=== PATIENT | female | born 1940 | race Two or more races ===

== ENCOUNTER 2023-09-16 19:11 | Inpatient (IN) | payer OTHER ==
[~2023-09-16] VITALS: Ht 147.3 cm; Wt 73.5 kg
[2023-09-16] MEDS ORDERED: COZAAR100 MG PO (20:13)
--- NOTE | 2023-09-16 20:13 | NUR ---
PACIENTE ALERTA Y ORIENTADA X3. PACIENTE REFIERE DOLOR EN LA PIERNA IZQUIERDA. SE OBSERVA PIERNA INFLAMADA, ROJIZA Y CALIENTE AL TACTO. SE ESTIMAN VITALES Y SE UBICA.
[2023-09-16] MEDS ORDERED: CEFTRIAXONE SODIUM 1,000 MG VIAL IV STA (22:00)
[2023-09-16] MEDS ORDERED: CEFTRIAXONE SODIUM 1,000 MG VIAL ONE (22:19)
--- NOTE | 2023-09-16 22:46 | NUR ---
PACIENTE ALERTA Y ORIENTADO X3. SE EDUCA SOBRE TX MEDICO, TRACI REFIERE ENTENDER. SE EXTRAEN MUESTRAS DE LABORATORIO Y SE ADMINISTRAN MEDICAMENTOS LEE ORDEN MEDICA. PENDIENTE CT.
[2023-09-16 23:16] LABS: HEMATOCRIT 36.6 % (36.0-45.00); HEMOGLOBIN 12.5 g/dL (12.0-15.00); MEAN CELL VOLUME 85.1 fL (80.00-100.00); MEAN CORPUSCULAR HGB CONC 34.1 g/dl (32.0-36.0); PLATELET COUNT 195 K/uL (150-450); RED CELL DISTRIBUTION WIDTH 13.8 % (11.5-14.5)
[2023-09-16 23:26] LABS: INR 1.14; PROTHROMBIN TIME 11.9 SECONDS (9.0-11.5)
[2023-09-16 23:39] LABS: ALBUMIN 3.3 gm/dL (3.4-5.0); BILIRUBIN TOTAL 1.19 mg/dL (0.3-1.2); CALCIUM 9.4 mg/dL (8.5-10.1); CREATININE SERUM 1.08 mg/dL (0.55-1.02); GFR 48.45; GLOBULINA 4.2 G/DL (2.4-3.5); POTASSIUM 3.95 mEq/L (3.5-5.1); TOTAL PROTEIN 7.5 gm/dL (6.4-8.2)
[2023-09-16 23:51] LABS: C-REACTIVE PROTEIN 22.8 MG/DL (0.00-0.29)
[2023-09-17] MEDS ORDERED: 0.9 % SODIUM CHLORIDE 1,000 ML IV ONE (03:45)
--- NOTE | 2023-09-17 07:17 | NUR ---
SE RECIBE PTE ALERTA Y ORIENTADA EN AWILDA BAJA CON BARANDAS ELEVADAS POR SEGURIDAD. SE OBSERVA PTE CON BUEN PATRON RESPIRATORIO. RECIBIENDO 0.9NSS 1000ML @ 100ML/HR. PEND CONS. DR JEN WILKINS
[2023-09-17] MEDS ORDERED: CEFTRIAXONE SODIUM 1,000 MG VIAL ONE (07:29)
[2023-09-17] MEDS ORDERED: CEFTRIAXONE SODIUM 1,000 MG in 0.9 % SODIUM CHLORIDE 100 ML IV SCH (09:00)
[2023-09-17] MEDS ORDERED: FAMOTIDINE/PF 20 MG in 0.9 % SODIUM CHLORIDE 100 ML IV SCH (12:43)
[2023-09-17] MEDS ORDERED: INSULIN LISPRO 1,000 UNIT/10 ML UNITS SUBCUTANEO PRN (12:45)
[2023-09-17] MEDS ORDERED: DEXTROSE 50 % IN WATER 0.5 G/ML DISP.SYRIN IV PRN (12:45)
[2023-09-17] MEDS ORDERED: 0.9 % SODIUM CHLORIDE 1,000 ML IV SCH (12:45)
[2023-09-17] MEDS ORDERED: ACETAMINOPHEN 325 MG TABLET PO PRN (12:45)
[2023-09-17] MEDS ORDERED: ONDANSETRON HCL 4 MG in 0.9 % SODIUM CHLORIDE 50 ML IV PRN (13:00)
[2023-09-17 16:45] LABS: PARTIAL THROMBOPLASTIN TIME 21.6 SECONDS (22.0-34.0); PROTHROMBIN TIME 10.5 SECONDS (9.0-11.5)
[2023-09-17 16:53] LABS: CREATININE SERUM 0.82 mg/dL (0.55-1.02)
[2023-09-17 17:00] LABS: C-REACTIVE PROTEIN 26.3 MG/DL (0.00-0.29)
[2023-09-17] MEDS ORDERED: VANCOMYCIN HCL 1,000 MG VIAL IV SCH (17:00)
[2023-09-17] MEDS ORDERED: levoFLOXacin IN DEXTROSE 5 % 150 ML IV SCH (17:00)
[2023-09-17] MEDS ORDERED: LOSARTAN POTASSIUM 100 MG TABLET PO SCH (17:00)
[2023-09-18] MEDS ORDERED: DEXTROSE 50 % IN WATER 0.5 G/ML VIAL IV PRN (07:30)
[2023-09-18 14:56] LABS: HEMATOCRIT 34.7 % (36.0-45.00); HEMOGLOBIN 11.8 g/dL (12.0-15.00); MEAN CELL VOLUME 84.3 fL (80.00-100.00); MEAN CORPUSCULAR HEMOGLOBIN 28.8 pg (27.00-32.0); MEAN CORPUSCULAR HGB CONC 34.1 g/dl (32.0-36.0); PLATELET COUNT 172 K/uL (150-450); RED BLOOD COUNT 4.12 M/uL (4.00-6.00); RED CELL DISTRIBUTION WIDTH 13.8 % (11.5-14.5)
[2023-09-18 15:28] LABS: ALBUMIN 2.6 gm/dL (3.4-5.0); BILIRUBIN TOTAL 0.48 mg/dL (0.3-1.2); CALCIUM 8.9 mg/dL (8.5-10.1); CREATININE SERUM 0.79 mg/dL (0.55-1.02); GFR 69.5; GLOBULINA 3.3 G/DL (2.4-3.5); MAGNESIUM 2.1 mg/dL (1.8-2.4); POTASSIUM 3.54 mEq/L (3.5-5.1); TOTAL PROTEIN 5.9 gm/dL (6.4-8.2)
[2023-09-18] MEDS ORDERED: POTASSIUM PHOS,M-BASIC-D-BASIC 15 MM in 0.9 % SODIUM CHLORIDE 250 ML IV NR (21:00)
[2023-09-19] MEDS ORDERED: LINEZOLID 600 MG TABLET PO SCH (17:00)
[2023-09-19] MEDS ORDERED: NIFEDIPINE 30 MG TAB.SA.OSM PO SCH (17:00)
[2023-09-19] MEDS ORDERED: METHYLPREDNISOLONE SOD SUCC 40 MG VIAL IV SCH (21:00)
[2023-09-20 08:24] LABS: HEMOGLOBIN 11.7 g/dL (12.0-15.00); MEAN CELL VOLUME 82.7 fL (80.00-100.00); MEAN CORPUSCULAR HEMOGLOBIN 28.4 pg (27.00-32.0); MEAN CORPUSCULAR HGB CONC 34.3 g/dl (32.0-36.0); PLATELET COUNT 220 K/uL (150-450); RED BLOOD COUNT 4.11 M/uL (4.00-6.00); RED CELL DISTRIBUTION WIDTH 14.2 % (11.5-14.5)
[2023-09-20 09:38] LABS: ALBUMIN 2.5 gm/dL (3.4-5.0); BILIRUBIN TOTAL 0.5 mg/dL (0.3-1.2); CALCIUM 8.7 mg/dL (8.5-10.1); CREATININE SERUM 0.56 mg/dL (0.55-1.02); GFR 103.39; GLOBULINA 3.1 G/DL (2.4-3.5); MAGNESIUM 2.2 mg/dL (1.8-2.4); PHOSPHOROUS 3.5 mg/dL (2.5-4.9); TOTAL PROTEIN 5.6 gm/dL (6.4-8.2)
[2023-09-20 09:41] LABS: C-REACTIVE PROTEIN 11.6 MG/DL (0.00-0.29)
[2023-09-20 16:21] LABS: PH,URINE 6.5 (5.0-8.0); URINE APPEARANCE Clear; URINE BILIRRUBIN Negative (NEGATIVE); URINE BLOOD Negative; URINE COLOR Yellow; URINE LEUKOCYTE Trace; URINE NITRATE Negative; URINE PROTEIN 30 (NEGATIVE); URINE UROBILINOGEN 0.2 E.U./dl
[2023-09-20 16:26] LABS: URINE BACTERIA 51.6 uL (0.0-1933); URINE EPITHELIAL CELLS 20.2 uL (0.0-38.8); URINE RBC 9.7 uL (0.0-20.8); URINE WBC 14.9 uL (0.0-23.2)
[2023-09-20 16:43] LABS: URINE GLUCOSE 250 MG/DL (NEGATIVE)
[2023-09-22] MEDS ORDERED: SODIUM CHLORIDE 0.45 % 1,000 ML IV SCH (10:30)
[2023-09-22] MEDS ORDERED: NIFEDIPINE 30 MG TAB.SA.OSM PO NR (12:30)
[2023-09-22 14:14] LABS: ALBUMIN 2.8 gm/dL (3.4-5.0); BILIRUBIN TOTAL 0.39 mg/dL (0.3-1.2); CREATININE SERUM 0.7 mg/dL (0.55-1.02); GFR 79.91; GLOBULINA 3.8 G/DL (2.4-3.5); MAGNESIUM 2.4 mg/dL (1.8-2.4); PHOSPHOROUS 2.6 mg/dL (2.5-4.9); POTASSIUM 4.4 mEq/L (3.5-5.1); TOTAL PROTEIN 6.6 gm/dL (6.4-8.2)
[2023-09-22] MEDS ORDERED: VANCOMYCIN HCL 1,000 MG in 0.9 % SODIUM CHLORIDE 250 ML IV SCH (17:00)
[2023-09-22] MEDS ORDERED: NIFEDIPINE 30 MG TAB.SA.OSM PO SCH (17:00)
[2023-09-22] MEDS ORDERED: FAMOtidine 20 MG TABLET PO SCH (21:00)
[2023-09-23 07:40] LABS: HEMATOCRIT 40.1 % (36.0-45.00); HEMOGLOBIN 13.9 g/dL (12.0-15.00); MEAN CELL VOLUME 84.5 fL (80.00-100.00); MEAN CORPUSCULAR HEMOGLOBIN 29.4 pg (27.00-32.0); MEAN CORPUSCULAR HGB CONC 34.7 g/dl (32.0-36.0); PLATELET COUNT 357 K/uL (150-450); RED BLOOD COUNT 4.75 M/uL (4.00-6.00); RED CELL DISTRIBUTION WIDTH 13.9 % (11.5-14.5)
[2023-09-23 08:06] LABS: ALBUMIN 2.9 gm/dL (3.4-5.0); BILIRUBIN TOTAL 0.52 mg/dL (0.3-1.2); CALCIUM 9.1 mg/dL (8.5-10.1); CREATININE SERUM 0.61 mg/dL (0.55-1.02); GFR 93.67; GLOBULINA 3.9 G/DL (2.4-3.5); MAGNESIUM 2.5 mg/dL (1.8-2.4); PHOSPHOROUS 2.8 mg/dL (2.5-4.9); POTASSIUM 3.95 mEq/L (3.5-5.1); TOTAL PROTEIN 6.8 gm/dL (6.4-8.2)
[2023-09-24] MEDS ORDERED: ENALAPRILAT DIHYDRATE 2.5 MG/2 ML VIAL IV PRN (10:45)
[2023-09-24] MEDS ORDERED: ENALAPRILAT DIHYDRATE 1.25 MG/ML VIAL IV PRN (13:00)
[2023-09-25 07:19] LABS: HEMATOCRIT 40.9 % (36.0-45.00); MEAN CELL VOLUME 84.4 fL (80.00-100.00); MEAN CORPUSCULAR HEMOGLOBIN 28.8 pg (27.00-32.0); MEAN CORPUSCULAR HGB CONC 34.1 g/dl (32.0-36.0); PLATELET COUNT 372 K/uL (150-450); RED BLOOD COUNT 4.85 M/uL (4.00-6.00); RED CELL DISTRIBUTION WIDTH 14.3 % (11.5-14.5)
[2023-09-25 07:39] LABS: ALBUMIN 2.8 gm/dL (3.4-5.0); BILIRUBIN TOTAL 0.81 mg/dL (0.3-1.2); CALCIUM 8.9 mg/dL (8.5-10.1); CREATININE SERUM 0.94 mg/dL (0.55-1.02); GFR 56.87; GLOBULINA 3.4 G/DL (2.4-3.5); MAGNESIUM 2.4 mg/dL (1.8-2.4); PHOSPHOROUS 3.7 mg/dL (2.5-4.9); POTASSIUM 4.43 mEq/L (3.5-5.1); TOTAL PROTEIN 6.2 gm/dL (6.4-8.2)
[2023-09-25] MEDS ORDERED: DOXYCYCLINE HY100 M2 PO (13:48)
[2023-09-25] MEDS ORDERED: NIFEDIPINE ER30 MG PO (13:49)
== END 2023-09-25 16:54 | disposition home or self-care (01) | DRG 872 ==
LOC: ER 19:12 → MEDI 09-17 14:48
PROVIDERS: General Practice; Internal Medicine Infectious Disease; ADMIT Internal Medicine; ATTEND Internal Medicine
PROC: B020ZZZ Computerized Tomography (CT Scan) of Brain (ICD-10-PCS; 2023-09-16)
PROC: B54DZZZ Ultrasonography of Bilateral Lower Extremity Veins (ICD-10-PCS; principal; 2023-09-17)
PROC: BW40ZZZ Ultrasonography of Abdomen (ICD-10-PCS; 2023-09-22)
DX: A41.9 Sepsis, unspecified organism (principal); L03.116 Cellulitis of left lower limb; N17.9 Acute kidney failure, unspecified; E87.1 Hypo-osmolality and hyponatremia; E11.51 Type 2 diabetes mellitus with diabetic peripheral angiopathy without gangrene; I89.0 Lymphedema, not elsewhere classified; E87.6 Hypokalemia; E86.9 Volume depletion, unspecified; I12.9 Hypertensive chronic kidney disease with stage 1 through stage 4 chronic kidney disease, or unspecified chronic kidney disease; E11.22 Type 2 diabetes mellitus with diabetic chronic kidney disease; N18.9 Chronic kidney disease, unspecified; Z79.4 Long term (current) use of insulin; R42 Dizziness and giddiness

== ENCOUNTER 2023-10-18 11:03 | Emergency (ER) | payer OTHER ==
[~2023-10-18] VITALS: Ht 149.9 cm; Wt 68.9 kg
[~2023-10-18 11:03] MED LIST: COZAAR100 MG PO; DOXYCYCLINE HY100 M2 PO; NIFEDIPINE ER30 MG PO
[2023-10-18] MEDS ORDERED: FAMOtidine 10 MG/ML (4ML VIAL) IV ONE (11:45)
[2023-10-18] MEDS ORDERED: 0.9 % SODIUM CHLORIDE 500 ML IV ONE (11:45)
[2023-10-18] MEDS ORDERED: FAMOtidine 200mg/20ml VIAL ONE (12:22)
[2023-10-18 13:00] LABS: HEMATOCRIT 30.9 % (36.0-45.00); HEMOGLOBIN 10.7 g/dL (12.0-15.00); MEAN CORPUSCULAR HGB CONC 34.5 g/dl (32.0-36.0); PLATELET COUNT 226 K/uL (150-450); RED BLOOD COUNT 3.68 M/uL (4.00-6.00); RED CELL DISTRIBUTION WIDTH 14.6 % (11.5-14.5)
[2023-10-18 13:06] LABS: ERYTHROCYTE SEDIMENTATION RATE 39 mm/hr
[2023-10-18 13:44] LABS: ALBUMIN 2.7 gm/dL (3.4-5.0); BILIRUBIN TOTAL 0.71 mg/dL (0.3-1.2); CREATININE SERUM 1.38 mg/dL (0.55-1.02); GFR 36.51; GLOBULINA 3.5 G/DL (2.4-3.5); POTASSIUM 3.36 mEq/L (3.5-5.1); TOTAL PROTEIN 6.2 gm/dL (6.4-8.2)
== END 2023-10-18 16:05 | disposition home or self-care (01) ==
LOC: ER 11:04
PROVIDERS: General Practice
DX: K29.70 Gastritis, unspecified, without bleeding (principal); R10.9 Unspecified abdominal pain; Z20.822 Contact with and (suspected) exposure to COVID-19; I10 Essential (primary) hypertension; E11.9 Type 2 diabetes mellitus without complications; Z88.6 Allergy status to analgesic agent
CPT/HCPCS: 36415; 71045; 93005; 96365; 96366; 99283; J3490; J7042

== ENCOUNTER 2024-04-30 10:11 | Emergency (ER) | payer OTHER ==
[~2024-04-30] VITALS: Ht 149.9 cm; Wt 68.0 kg
[2024-04-30] MEDS ORDERED: ACETAMINOPHEN 500 MG GEL..CAP PO STA (12:53)
[2024-04-30] MEDS ORDERED: ACETAMINOPHEN 500 MG GEL..CAP PO ONE (13:07)
[2024-04-30 13:14] LABS: HEMATOCRIT 36.1 % (36.0-45.00); HEMOGLOBIN 11.9 g/dL (12.0-15.00); MEAN CELL VOLUME 85.4 fL (80.00-100.00); MEAN CORPUSCULAR HEMOGLOBIN 28.1 pg (27.00-32.0); PLATELET COUNT 232 K/uL (150-450); RED BLOOD COUNT 4.23 M/uL (4.00-6.00); RED CELL DISTRIBUTION WIDTH 13.8 % (11.5-14.5)
[2024-04-30 13:55] LABS: CALCIUM 9.5 mg/dL (8.5-10.1); CREATININE SERUM 1.21 mg/dL (0.55-1.02); GFR 42.39; POTASSIUM 4.08 mEq/L (3.5-5.1)
[2024-04-30 14:00] LABS: URINE APPEARANCE Cloudy; URINE BILIRRUBIN Negative (NEGATIVE); URINE BLOOD Negative; URINE COLOR Yellow; URINE GLUCOSE Negative (NEGATIVE); URINE KETONE Negative (NEGATIVE); URINE LEUKOCYTE Moderate; URINE NITRATE Negative; URINE PROTEIN Trace (NEGATIVE)
[2024-04-30 14:01] LABS: URINE BACTERIA 1146.8 uL (0.0-1933); URINE EPITHELIAL CELLS 112.2 uL (0.0-38.8); URINE RBC 19.7 uL (0.0-20.8)
[2024-04-30 14:35] LABS: URINE EPITHELIAL CELLS LOADED /HPF
== END 2024-04-30 15:31 | disposition home or self-care (01) ==
LOC: ER 10:14
PROVIDERS: General Practice
DX: R53.81 Other malaise (principal); R50.9 Fever, unspecified; Z20.822 Contact with and (suspected) exposure to COVID-19; I10 Essential (primary) hypertension; Z88.6 Allergy status to analgesic agent